=== PATIENT | female | born 1960 | race Caucasian/White ===

== ENCOUNTER 2019-10-27 18:48 | Inpatient (IN) | payer MEDICARE ==
[~2019-10-27] VITALS: Ht 149.9 cm; Wt 93.5 kg
[2019-10-27] MEDS ORDERED: SODIUM CHLORIDE 0.9% 1000ML 1,000 ML IV STA (20:04)
[2019-10-27] MEDS ORDERED: HYDROCODONE/APAP 5MG-325MG TAB PO NR (20:15)
[2019-10-27] MEDS ORDERED: PROMETHAZINE 25MG/ NS 50ML (IV) IV ONE (20:15)
[2019-10-27] MEDS ORDERED: VANCOMYCIN 1GM/NS 250 ML 250 ML IV ONE (20:15)
[2019-10-27] MEDS ORDERED: PIPER-TAZ 3.375 GM 50 ML IV ONE (20:15)
[2019-10-27] MEDS ORDERED: LACTATED RINGER'S 1,000 ML IV SCH (20:29)
[2019-10-27] MEDS ORDERED: ONDANSETRON HCL INJ 2MG/ML 2ML 2 MG/ML VIAL IV NR (20:30)
[2019-10-27] MEDS ORDERED: HYDROCODONE/APAP 7.5MG-325MG 1 EA TAB PO PRN (20:30)
[2019-10-27] MEDS ORDERED: CEFEPIME HCL 2 GM VIAL IV ONE (20:30)
[2019-10-27] MEDS ORDERED: ACETAMINOPHEN 325 MG TAB PO PRN (20:30)
[2019-10-27] MEDS ORDERED: DIPHENHYDRAMINE HCL INJ 50 MG/ML VIAL IV PRN (20:30)
[2019-10-27] MEDS ORDERED: ONDANSETRON HCL INJ 2MG/ML 2ML 2 MG/ML VIAL IV PRN (20:30)
[2019-10-27] MEDS ORDERED: ENALAPRILAT IV INJ 1.25 MG/ML VIAL IV PRN (20:30)
[2019-10-27] MEDS ORDERED: CLONIDINE HCL 0.1 MG TAB PO PRN (20:30)
[2019-10-27] MEDS ORDERED: PROMETHAZINE 25MG/ NS 50ML (IV) IV PRN (20:30)
[2019-10-27] MEDS ORDERED: CEFEPIME 2 GM/NS 0.9% 100 ML 100 ML IV ONE (20:45)
[2019-10-27] MEDS ORDERED: ZOLPIDEM TARTRATE 5 MG TAB PO PRN (21:00)
[2019-10-27 21:26] LABS: BASOPHILS % 0.4 % (0.0-1.0); EOSINOPHILS % 0.1 % (0.0-6.0); HEMATOCRIT 36.1 % (34.2-44.1); HEMOGLOBIN 11.6 g/dL (12.0-16.0); LYMPHOCYTES # (AUTO) 1.7 (1.0-3.2); LYMPHOCYTES % 21.5 % (18.0-39.1); MEAN CORPUSCULAR HEMOGLOBIN 27.5 pg (28-32); MEAN CORPUSCULAR HGB CONC 32.1 g/dL (31-35); MEAN CORPUSCULAR VOLUME 85.5 fL (81-99); MONOCYTES # (AUTO) 0.4 (0.2-0.8); MONOCYTES % 4.4 % (4.4-11.3); NEUTROPHILS # (AUTO) 5.8 (2.1-6.9); NEUTROPHILS % 73.3 % (38.7-80.0); PLATELET COUNT 305 x10e3/uL (140-360); RED BLOOD COUNT 4.22 x10e6/uL (3.6-5.1); RED CELL DISTRIBUTION WIDTH 13.6 % (11.7-14.4)
[2019-10-27 21:35] LABS: BILIRUBIN,URINE 1+ (NEGATIVE); CLARITY,URINE SL CLOUDY (CLEAR); COLOR,URINE YELLOW (YELLOW); KETONES,URINE 2+ (NEGATIVE); LEUKOCYTE ESTERASE ,URINE NEGATIVE (NEGATIVE); NITRITE,URINE NEGATIVE (NEGATIVE); PROTEIN,URINE DIPSTICK TRACE (NEGATIVE); URINE UROBILINOGEN 0.2 mg/dL (0.2 - 1)
[2019-10-27 21:44] LABS: BACTERIA,URINE MODERATE /HPF; EPITHELIAL CELLS,URINE MANY /LPF; RBC,URINE 0-5 /HPF (0-5)
[2019-10-27 21:44] LABS: ALANINE AMINOTRANSFERASE 9 IU/L (0-55); ALBUMIN 3.8 g/dL (3.5-5.0); ALBUMIN/GLOBULIN RATIO 0.8 (0.8-2.0); ALKALINE PHOSPHATASE 106 IU/L (40-150); ANION GAP 16.3 mmol/L (8-16); BLOOD UREA NITROGEN 12 mg/dL (7-26); BUN/CREATININE RATIO 16 (6-25); CARBON DIOXIDE 23 mmol/L (22-29); CHLORIDE 102 mmol/L (98-107); CREATININE, SERUM 0.75 mg/dL (0.57-1.11); EST GLOMERULAR FILTRATION RATE > 60 ML/MIN (60-); GLUCOSE 96 mg/dL (74-118); POTASSIUM 4.3 mmol/L (3.5-5.1); SODIUM 137 mmol/L (136-145)
[2019-10-27 23:40] VITALS: BP 148/77
[2019-10-27 23:45] VITALS: BP 148/77
--- NOTE | 2019-10-27 23:45 | NUR ---
Patient received via stretcher from ER. AAO x 4. Patient had complaints of right leg pain (06/08). Pain medication administered. Respirations even and non-labored. Patient vomited (about 200 cc ) after being transferred to bed. Refused administration of Zofran. Patient made comfortable. HOB elevated. Admission history obtained. Initial physical assessment performed. Right leg scaly, scabby and erythematous. Patient oriented to room, call light and plan of care. Fall precautions implemented. Patient refused bed alarm stating she could walk to the bathroom herself. Patient instructed to call for assistance when needed. Call light within reach.
[2019-10-27] MEDS: MORPHINE SULFATE INJ 4 MG/ML INJ 1ML IV PRN (23:55)
[2019-10-27] MEDS: VANCOMYCIN 1GM/NS 250 ML 250 ML IV SCH (23:59)
[2019-10-28] VITALS (9 sets, daily range): BP systolic 107–148; BP diastolic 58–77
[2019-10-28] MEDS ORDERED: HYDROCODONE/APAP 7.5MG-325MG 1 EA TAB PO PRN (01:15)
[2019-10-28] MEDS ORDERED: phenergan PO (02:24)
[2019-10-28] MEDS ORDERED: ZANAFLEX4 M1 PO (02:24)
[2019-10-28] MEDS ORDERED: MORPHINE SULFAT30 M2 PO (02:24)
[2019-10-28] MEDS: MORPHINE SULFATE INJ 4 MG/ML INJ 1ML IV PRN ×5 (04:26→22:45)
[2019-10-28] MEDS: VANCOMYCIN 1GM/NS 250 ML 250 ML IV SCH ×2 (06:18→18:33)
--- NOTE | 2019-10-28 06:32 | NUR ---
Patient's IV on right arm infiltrated. IVF discontinued. Old IV removed with tip intact. Patient tolerated well.
--- NOTE | 2019-10-28 07:00 | NUR ---
Walking rounds/BSSR conducted.
--- NOTE | 2019-10-28 07:01 | NUR ---
Dr. Reggie Magaña paged to notify him of being the admitting physician for patient instead of Dr. Nikolai Callejas. Awaiting call back.
--- NOTE | 2019-10-28 07:10 | NUR ---
RCD PT AT BED PT IS ALERT AND ORIENTED PT RESTING ON BED SHE C/O PAIN ON RIGHT LOWER LEG 05/08 ,SHE NEEDS PAIN MEDS YOMI IS NO IV ACCESS FOR THE PT PT REQUESTING PICC LINE BED LOW AND LOCKED CALL LIGHT IN REACH
[2019-10-28] MEDS: FAMOTIDINE 20 MG TAB PO SCH ×2 (07:30→17:13)
--- NOTE | 2019-10-28 08:30 | NUR ---
STARTED NEW IV ON THE LEFT HAND WITH 20 AND STARTED THE IV FLUID AND IV ANTIBIOTIC
[2019-10-28] MEDS: ENOXAPARIN SOD INJ 40 MG/0.4 ML SYR SC SCH (09:00)
--- NOTE | 2019-10-28 09:00 | NUR ---
PAIN MEDS MORPHINE 4 MG IV GIVEN SHE SAID SHE NEED TO CHANGE THE PAIN MEDS MORPHINE IN TO DILAUDID ,NOTIFIED DR PEREZ THAT TIME HE HERE TO SEE THE PT HE SAID HE KNOW HER ,HE SAID NOT GOING TO CHANGE MORPHINE ,
--- NOTE | 2019-10-28 09:15 | NUR ---
PT REQUESTED TO INCREASE THE DOSE OF MORPHINE NOTIFIED DR PEREZ HE SAID IF INCREASING THE MORPHINE HER RESPIRATION WILL STOP,EXPLAINED TO THE PATIENT SHE IS NOT HAPPY ABOUT IT
--- NOTE | 2019-10-28 09:17 | NUR ---
[facility] Antonia states patient has this company for her [employer]. Provided Antonia with dx and admit date
--- NOTE | 2019-10-28 12:20 | NUR ---
CARE TRANSFERRED TO [facility]
--- NOTE | 2019-10-28 13:24 | NUR ---
WOUND CARE CONSULT FOR 59 YO FEMALE HX OF RIGHT LOWER LEG CELLULITIS MARY LOU 20 ON CONSERVATIVE PUP STATUS AND INTERVENTIONS ON VISCO MATTRESS LABS : WBC- 7.87, HGB- 11.6, GLUCOSE -96 SKIN ASSESSMENT COMPLETE PATIENT PRESENTS WITH RIGHT LOWER LEG DERMATITIS RAISED AND SCALY COVERED 90% BROWN THIN DRY SCABBED AREA MEASURES 30CM X27CM EXTENDS FROM DORSAL PORTION TO POSTERIOR PORTION RIGHT LOWER LEG PATIENT COMPLAINS OF ITCHY PAINFUL STINGING RECOMMENDATIONS : NURSING TO CONTINUE TO MAINTAIN CONSERVATIVE PUP STATUS AND INTERVENTIONS ON VISCO MATTRESS NURSING TO CONTINUE TO ASSIST PATIENT OUT OF BED FOR MEALS AND MUCH TOLERATED NURSING TO CLEAN RIGHT LOWER LEG PARTIAL THICKNESS DERMATITIS AREA DAILY WITH NORMAL SALINE AND COVER WITH XEROFORM GAUZE 4X4'S AND WRAP WITH KERLIX Addendum: 10/28/19 at 1338 by Kevin Rao RN Amended: Links added.
--- NOTE | 2019-10-28 16:14 | History and Physical ---
HISTORY OF PRESENT ILLNESS: The patient is a 59-year-old female with past medical history positive for chronic pain syndrome, obesity, gastroesophageal reflux disease, came here because she failed outpatient treatment for cellulitis on the right leg. REVIEW OF SYSTEMS: CARDIOVASCULAR: No chest pain or palpitation. RESPIRATORY: No shortness of breath. No cough. GASTROINTESTINAL: No nausea, vomiting, or diarrhea. GENITOURINARY: No frequency. No dysuria. ALLERGIES: SHE IS ALLERGIC TO PENICILLIN AND CODEINE. SOCIAL HISTORY: She smokes. She does not drink. PAST MEDICAL HISTORY: Gastroesophageal reflux disease, chronic pain syndrome, obesity. PHYSICAL EXAMINATION: VITAL SIGNS: Blood pressure 120/58, temperature 97.4, heart rate 63 per minute, respiratory rate is 20 per minute, oxygen saturation 96%. HEART: Showed regular rhythm. Normal S1 and S2 sound. LUNGS: Clear bilaterally. ABDOMEN: Soft. EXTREMITIES: Shows a scaly rash with tenderness on the right leg. LABORATORY DATA: On the BMP; sodium 137, potassium 4.3, chloride 102 CO2 23, BUN 12, creatinine 0.76, glucose 96. On the CBC, white blood count 7.87, hemoglobin 11.6, hematocrit 36.1, and platelet count 305,000. AST 13, ALT 9, total bilirubin 0.5, alkaline phosphatase 106. FINAL IMPRESSION: 1. Cellulitis of the right leg. 2. Gastroesophageal reflux disease. 3. Chronic pain syndrome. 4. Obesity. 5. Anemia of chronic disease. PLAN OF TREATMENT: Continue vancomycin 1 g IV twice a day. Continue IV fluids. Continue Tylenol 650 mg q.6 hours as needed for pain or fever, clonidine 0.1 mg three times a day, Zofran 4 mg IV q.4 hours as needed for vomiting, morphine 4 mg IV q.4 hours as needed, Benadryl 25 mg q.6 hours as needed, enalaprilat 0.625 mg IV q.6 hours as needed for hypertension, [place] 1 tablet q.4 hours as needed, Lovenox 40 mg subcutaneous daily, Ambien 10 mg at night p.r.n. for sleep, Pepcid 20 mg twice a day, promethazine 25 mg q.4 hours as needed for severe pain. We are going to get an Infectious Disease consult with Dr. Auguste and Wound Care consult with Dr. Hutchison due to the scaly lesions on the right leg. MD ARON Bueno/CHINYERE /[id number]
--- NOTE | 2019-10-28 19:20 | NUR ---
Patient received sitting up in bed. AAO x 4. Patient complained about right leg pain (05/08). Will administer medication per eMAR. No signs of respiratory distress. Call light within reach.
--- NOTE | 2019-10-28 22:11 | Consultation ---
DATE OF CONSULTATION: 10/28/2019 REASON FOR CONSULTATION: Cellulitis of the right leg. HISTORY OF PRESENT ILLNESS: This is a patient who is a very pleasant 59-year-old white female, who has been having problem with the right leg for some time. She was sent to hospital for a few days for infection. She was discharged home with oral antibiotic, but she is coming back with worsening redness and swelling of the leg. The patient is being admitted. I am asked to see her. The patient denies any history of trauma, but she does have history of obesity. The patient has been having the problem with her leg for 1 to 3 weeks. She had chronic infection for 4 months. She was taking antibiotics for a few weeks without any improvement, getting progressively worse, so she came here. PAST MEDICAL HISTORY: Significant for obesity. PAST SURGICAL HISTORY: Denies. ALLERGIES: NKA. SOCIAL HISTORY: There is no smoking, drug abuse, or alcohol abuse. FAMILY HISTORY: Otherwise noncontributory. REVIEW OF SYSTEMS: At the present time, HEENT: There is no headache, visual changes, or hearing changes. GI: There is no nausea, no vomiting, no diarrhea. CARDIAC: There is no arrhythmia. NEURO: There is no seizure activity. SKIN: There is no rash. Review of systems otherwise HEENT negative, Pulmonary negative, Cardiac negative. All symptoms within normal limits. LABORATORY DATA: Reviewed. MEDICATION LIST: Reviewed. She is currently on: 1. Morphine. 2. Zofran. 3. Vancomycin. 4. Catapres. LABORATORY DATA: White count 7.7, hemoglobin 11.6. Sodium 137, potassium 4.3, creatinine 0.75, and protein of 8.4. PHYSICAL EXAMINATION: GENERAL: She is currently alert, oriented, does not seem to be in acute distress. VITAL SIGNS: Temperature 96.5, heart rate of 60, respirations 20, and blood pressure 129/63. HEENT: Normocephalic, not icteric. NECK: Supple. CHEST: Clear bilateral. HEART: S1, S2. No S3, S4, or murmur. ABDOMEN: Soft. Bowel sounds present. EXTREMITIES: Right leg, there is erythema, there is edema. IMPRESSION: Cellulitis of the right leg. We will like to get the records from previous as she did not let me examine the leg now. We just wrapped. We will see it again with the Wound Care. Continue with current choice of antibiotic for now. We will revisit again later today. Discussed with the patient. We will follow with you. MD FAVIOLA Mcfarlane/CHINYERE /[id number]
[2019-10-29] VITALS (8 sets, daily range): BP systolic 115–156; BP diastolic 60–68
[2019-10-29] MEDS: MORPHINE SULFATE INJ 4 MG/ML INJ 1ML IV PRN ×5 (02:47→19:56)
--- NOTE | 2019-10-29 07:00 | NUR ---
Patient resting comfortably. Walking rounds done. Bed-side report given to oncoming nurse regarding patient's status.
--- NOTE | 2019-10-29 07:40 | NUR ---
spoke with CHERELLE Og for Dr. Auguste regarding Vancomycin trough; he states go ahead and give next dose.
[2019-10-29] MEDS: VANCOMYCIN 1GM/NS 250 ML 250 ML IV SCH ×2 (10:14→18:16)
[2019-10-29] MEDS: FAMOTIDINE 20 MG TAB PO SCH ×2 (10:15→18:16)
[2019-10-29] MEDS: ENOXAPARIN SOD INJ 40 MG/0.4 ML SYR SC SCH (10:15)
[2019-10-29] MEDS: ONDANSETRON HCL 4 MG ORAL DISINTEGRATING TAB PO PRN ×2 (10:20→19:56)
[2019-10-29] MEDS ORDERED: FENTANYL 25 MCG/HR PATCH TOP SCH (15:00)
--- NOTE | 2019-10-29 17:45 | Consultation ---
DATE OF CONSULTATION: 10/29/2019 Wound Consultation Thank you, Dr. Magaña, for asking me to see this patient. HISTORY OF PRESENT ILLNESS: A 59-year-old female patient, history of chronic lower extremity itching, admitted 3 times with cellulitis of the legs. She is getting home health, wound care and getting Xeroform applied to the both legs with a Kerlix. The patient keeps scratching. On examination, she has bilateral chronic and acute eczema, most likely from bismuth in the Xeroform causing contact dermatitis followed by scratching leading to cellulitis. I removed all the adherent plaques of hyperkeratotic skin and applied triamcinolone cream for eczema. PAST MEDICAL HISTORY: Obesity, recurrent cellulitis lower extremity, possible venous insufficiency, anemia, and GERD. ALLERGIES: TO PENICILLIN AND CODEINE. PERSONAL HISTORY: Smokes. No history of drinking. PHYSICAL EXAMINATION: VITAL SIGNS: Blood pressure 120/58, pulse of 63, and temperature 97.4. HEENT: Normal. NECK: No JVD. LUNGS: Clear. ABDOMEN: Soft, protuberant, and obese. EXTREMITIES: Lower extremities; bilateral lower extremities scaly and hyperkeratotic skin with redness involving both legs, more on the right leg consistent with eczema. ASSESSMENT: Znxhe-[id number]-[id number] eczema both lower extremities with scratching and cellulitis. PLAN: Apply triamcinolone acetonide 0.1% cream to both legs, live it to air. Thank you for consultation. We will follow up. MD NATHANIEL Clement/CHINYERE /[id number]
[2019-10-29] MEDS: TRIAMCINOLONE ACET 0.1% CREAM 15 GM TUBE TOP SCH (18:23)
--- NOTE | 2019-10-29 18:40 | Progress Note ---
DATE: 10/29/2019 Internal Medicine Progress Note SUBJECTIVE: The patient is complaining of pain in the right leg. She is actually getting morphine every 4 hours. She is also taking Bonham every 4 hours. The pain is out of proportion to the medical condition that she has. She also has chronic back pain from the past. We are going to get a Pain Management consult due to the pain that she is having, which is completely out of proportion to the pain that she should have from cellulitis on the legs. OBJECTIVE: VITAL SIGNS: Blood pressure 156/68, temperature 97 degrees, heart rate 70 per minute, respiratory rate 18 per minute, oxygen saturation 96%. HEART: Showed regular rhythm. Normal S1, S2 sound. LUNGS: Clear bilaterally. ABDOMEN: Nondistended. EXTREMITIES: Show redness on the lateral aspect of the right leg. LABORATORY DATA: On the BMP, sodium 137, potassium 4.3, chloride 102, CO2 of 23. BUN 12, creatinine 0.75, glucose 96. On CBC, white blood count 7.87, hemoglobin 11.6, hematocrit 36.1, and platelet count 305,000. AST 13, ALT 9, total bilirubin 0.5, alkaline phosphatase 106. IMPRESSION: 1. Cellulitis on the right leg. 2. Chronic pain syndrome. 3. Obesity. 4. Hypertension. PLAN OF TREATMENT: We are going to continue: 1. Vancomycin 1 g IV twice a day. 2. Tylenol 650 mg q.6 hours as needed. 3. Clonidine 0.1 mg 3 times a day. 4. Lovenox 40 mg subcutaneous daily. 5. Promethazine 25 mg IV q.4 hours as needed for nausea and vomiting. 6. Triamcinolone cream twice a day. 7. Pepcid 20 mg twice a day. 8. Morphine. She is taking 4 mg IV q.4 hours as needed. 9. She is taking enalaprilat 0.625 mg IV q.6 hours as needed for hypertension. 10. Bonham 1 tablet q.4 hours as needed for [id number] pain. 11. Ambien 10 mg at night p.r.n. for sleep. 12. Zofran 4 mg q.4 hours as needed for nausea and vomiting. We are going to also get case mgr's further evaluation for a possible transfer to post acute medical rehab on Friday. MD ARON Buneo/CHINYERE /[id number]
[2019-10-29] MEDS ORDERED: HYDROCODONE/APAP 10MG-325MG TAB PO PRN (18:45)
[2019-10-30] VITALS (8 sets, daily range): BP systolic 116–134; BP diastolic 60–75
[2019-10-30] MEDS: MORPHINE SULFATE INJ 4 MG/ML INJ 1ML IV PRN ×6 (04:07→21:10)
--- NOTE | 2019-10-30 06:42 | NUR ---
Received [facility] trough level of 17.9. paged. Awaiting call back from .
--- NOTE | 2019-10-30 07:19 | NUR ---
report given to day nurse. patient is resting comfortably in bed. bed is in lowest position and call bucio is within reach.
[2019-10-30] MEDS: FAMOTIDINE 20 MG TAB PO SCH ×2 (08:26→17:01)
[2019-10-30] MEDS: ENOXAPARIN SOD INJ 40 MG/0.4 ML SYR SC SCH (08:32)
[2019-10-30] MEDS: ONDANSETRON HCL 4 MG ORAL DISINTEGRATING TAB PO PRN ×4 (08:36→21:10)
[2019-10-30] MEDS: VANCOMYCIN 1GM/NS 250 ML 250 ML IV SCH ×2 (08:36→17:01)
[2019-10-30] MEDS: TRIAMCINOLONE ACET 0.1% CREAM 15 GM TUBE TOP SCH ×2 (08:43→16:58)
--- NOTE | 2019-10-30 15:08 | NUR ---
CM called pt's daughter Анна Gamboa and obtained home health information. [facility] Office phone [phone] Nurse that comes to see pt is Frida [phone]. Home health resumption order and clinicals faxed. Confirmation received. CM called office phone to notify of clinicals and possible dc. Phone went to [facility] and voicemail box is full, CM unable to leave message. CM also placed call to Frida, which also went to [facility]. Left message for callback.
--- NOTE | 2019-10-30 15:30 | NUR ---
Received callback from Frida. She stated that the office is closed on the weekends. CM informed her that resumption order and clinicals were faxed today. Possible DC tomorrow. She states she has been talking to pt daily.
--- NOTE | 2019-10-30 15:34 | Progress Note ---
DATE: 10/30/2019 Internal Medicine Progress Note. ADDENDUM: The patient is refusing to go to an inpatient rehab facility, so most likely going to her home on Friday or tomorrow with home health. MD ARON Bueno/CHINYERE /[id number]
--- NOTE | 2019-10-30 16:49 | Progress Note ---
DATE: 10/30/2019 Internal Medicine Progress Note SUBJECTIVE: The patient is with less pain today. PHYSICAL EXAMINATION: VITAL SIGNS: Blood pressure 134/75, temperature 96.3, heart rate 52 per minute, respiratory rate 17 per minute, and O2 saturation 96%. HEART: Showed regular rhythm. Normal S1, S2 sound. LUNGS: Clear bilaterally. ABDOMEN: Nondistended. EXTREMITIES: Show significant decrease in the redness and scaly lesions. LABORATORY DATA: On the BMP; sodium 137, potassium 4.3, chloride 102, CO2 of 23, BUN 12, creatinine 0.75, glucose 96. CBC; white blood count 7.8, hemoglobin 8.6, hematocrit 36.1, and platelet count 305,000. AST 13, ALT 9, total bilirubin 0.5, alkaline phosphatase 106. IMPRESSION: 1. Cellulitis on right leg. 2. Gastroesophageal reflux disease. 3. Chronic pain syndrome. 4. Obesity. PLAN OF TREATMENT: Continue vancomycin q.12 hours. Continue Tylenol 650 mg q.6 hours. Continue clonidine 0.1 mg three times a day, Lovenox 40 mg subcu daily for DVT prophylaxis, promethazine 25 mg IV q.6 hours as needed for vomiting, fentanyl patch 25 mcg q.72 hours, Pepcid 20 mg twice a day, morphine 4 mg IV q.4 hours as needed, [place] one tablet q.4 hours as needed for severe pain, enalaprilat 0.625 mg IV q.6 hours as needed for hypertension, Zofran 4 mg IV q.4 hours as needed, Ambien 10 mg at bedtime as needed for insomnia, and triamcinolone cream twice a day. Tentative discharge tomorrow with home health for PT/OT. MD ARON Bueno/LAMINEL /[id number]
--- NOTE | 2019-10-30 18:50 | Progress Note ---
DATE: 10/30/2019 SUBJECTIVE: Ms. Gamboa is lying in bed comfortably. There are no new complaints. She still has some nausea. REVIEW OF SYSTEMS: HEENT: Negative. PULMONARY: Negative. CARDIAC: Negative. Otherwise unremarkable. LABORATORY DATA: Her blood cultures are negative. Her white count is 7.8, hemoglobin of 11. Sodium 137, potassium 4.3. PHYSICAL EXAMINATION: GENERAL: She is currently alert, oriented, does not seem to be in acute distress. VITAL SIGNS: Stable. Currently afebrile. HEENT: Normocephalic, not icteric. NECK: Supple. CHEST: Clear. HEART: S1, S2. No S3, S4, or murmur. ABDOMEN: Soft. Bowel sounds present. No tenderness. EXTREMITIES: Edema in the leg seems to be much better. IMPRESSION: 1. Cellulitis of the leg, improving. 2. Obesity. 3. Chronic pain syndrome. 4. Hypertension. Continue with vancomycin. Continue with local care. Discussed with Internal Medicine. Discussed with medical team. We will follow. MD FAVIOLA Mcfarlane/CHINYERE /[id number]
[2019-10-31] VITALS (8 sets, daily range): BP systolic 128–145; BP diastolic 59–81
[2019-10-31] MEDS: ONDANSETRON HCL 4 MG ORAL DISINTEGRATING TAB PO PRN ×5 (01:12→18:07)
[2019-10-31] MEDS: MORPHINE SULFATE INJ 4 MG/ML INJ 1ML IV PRN ×5 (01:12→18:07)
--- NOTE | 2019-10-31 06:35 | NUR ---
patient is resting comfortably in bed, bed is in lowest position and call bucio is within reach.
[2019-10-31] MEDS: FAMOTIDINE 20 MG TAB PO SCH ×2 (08:24→16:19)
[2019-10-31] MEDS: ENOXAPARIN SOD INJ 40 MG/0.4 ML SYR SC SCH (08:24)
[2019-10-31] MEDS: TRIAMCINOLONE ACET 0.1% CREAM 15 GM TUBE TOP SCH ×2 (08:25→16:19)
--- NOTE | 2019-10-31 14:02 | Progress Note ---
DATE: 10/31/2019 Internal Medicine Progress Note. The patient is doing well. She wants to go home tomorrow. She preferred to have home health rather she going to an inpatient rehab. PHYSICAL EXAMINATION: VITAL SIGNS: Blood pressure 134/67, temperature 97.2, heart rate 58 per minute, respiratory rate is 20 per minute, and oxygen saturation 98%. HEART: Regular rhythm. Normal S1, S2 sound. LUNGS: Clear bilaterally. ABDOMEN: Soft. EXTREMITIES: Showed decreased redness on the right leg. LABORATORY DATA: BMP; sodium 137, potassium 4.3, chloride 102, CO2 of 23, BUN 12, creatinine 0.75, glucose 96. On the CBC, white count 7.87, hemoglobin 9.6, hematocrit 36.1, and platelet count 205,000. AST 13, ALT 9, total bilirubin 0.5, alkaline phosphatase 106. IMPRESSION: 1. Cellulitis of the right leg. 2. Gastroesophageal reflux disease. 3. Chronic pain syndrome. 4. Obesity. PLAN OF TREATMENT: Continue vancomycin 1000 mg IV once a day, Tylenol 650 mg q.6 hours as needed for pain or fever, clonidine 0.1 mg three times a day, Lovenox 40 mg subcutaneous daily for DVT prophylaxis, promethazine 25 mg IV q.4 hours as needed for nausea and vomiting, fentanyl patch 25 mcg q.72 hours, Pepcid 20 mg twice a day, morphine 4 mg IV q.4 hours as needed, [place] 1 tablet q.4 hours as needed for severe pain, enalaprilat 0.625 mg IV q.6 hours, Zofran 4 mg IV q.4 hours as needed for nausea and vomiting. She is taking methylprednisolone which we are going to discontinue and put her on oral prednisone. Continue Ambien 10 mg at bedtime and triamcinolone cream twice a day. MD ARON Bueno/CHINYERE /[id number]
--- NOTE | 2019-10-31 14:13 | NUR ---
went ahead and faxed order and facesheet to [facility].
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
--- NOTE | 2019-10-31 17:37 | NUR ---
Dr. Auguste notified of Vancomycin level 21.1. Orders received.
--- NOTE | 2019-10-31 19:05 | NUR ---
bedside rounding complete, report given to oncoming nurse. pt stable condition.
--- NOTE | 2019-10-31 20:17 | NUR ---
received report from day nurse. bedside rounding complete. patient is resting in bed. bed is in lowest position and call bucio is within reach. will continue to monitor patient.
[2019-10-31] MEDS ORDERED: METHYLPREDNISOLONE SOD SUCC 40 MG/ML VIAL 1ML IV SCH (21:00)
[2019-11-01] VITALS: BP 160/72
[2019-11-01] MEDS: MORPHINE SULFATE INJ 4 MG/ML INJ 1ML IV PRN ×3 (00:06→08:16)
[2019-11-01 04:00] VITALS: BP 142/84
[2019-11-01] MEDS ORDERED: VANCOMYCIN 500MG/NS 0.9% 100ML 100 ML IV SCH (06:30)
--- NOTE | 2019-11-01 07:00 | NUR ---
BEDSIDE SHIFT REPORT RECEIVED FROM THE LOCATOR RN. EDUCATED PT ABOUT FALL PRECAUTIONS. CALL LIGHT WITH IN EASY REACH. INSTRUCTED PT TO USE CALL LIGHT FOR ALL THE NEEDS. PT VERBALIZED UNDERSTANDING. BED IS LOW AND LOCKED. SIDE RAILS X2. PT DENIES NEEDS AT THIS TIME.
--- NOTE | 2019-11-01 07:10 | NUR ---
report given to day nurse. patient is resting comfortably in bed. bed is in lowest position and call bucio is within reach.
--- NOTE | 2019-11-01 07:55 | NUR ---
PAGED DR. PEREZ TO CONFIRM THE DOSE OF PREDNISONE. WAITING FOR THE CALL BACK.
[2019-11-01 07:59] VITALS: BP 149/82
[2019-11-01 08:03] VITALS: BP 149/82
--- NOTE | 2019-11-01 08:15 | NUR ---
STEPHANIE VILLARREAL AT BEDSIDE. INFORMED PT VANC TROUGH LEVEL.
[2019-11-01] MEDS: ENOXAPARIN SOD INJ 40 MG/0.4 ML SYR SC SCH (08:19)
[2019-11-01] MEDS: FAMOTIDINE 20 MG TAB PO SCH (08:19)
[2019-11-01] MEDS: TRIAMCINOLONE ACET 0.1% CREAM 15 GM TUBE TOP SCH (08:21)
[2019-11-01] MEDS ORDERED: PREDNISONE 10 MG TAB PO SCH (09:00)
[2019-11-01] MEDS ORDERED: PREDNISONE 20 MG TAB PO SCH (09:00)
--- NOTE | 2019-11-01 09:00 | NUR ---
DR. PEREZ AT BEDSIDE. PREDNISONE 10 G PER THE ARRANGE TRANSFORATION AT DISCHARGE TO HOME BY CASE MANAGEMENT PER THE
--- NOTE | 2019-11-01 11:00 | NUR ---
HH ARRANGED AND OKAY TO D/C PT PER CASE MANAGEMENT.
--- NOTE | 2019-11-01 11:01 | NUR ---
HOME HEALTH DISCHARGE NOTE PATIENT ADDRESS WHERE SERVICE WILL BE RECEIVED: [address] [place] [id number] PATIENT CONTACT NUMBER: [phone] NAME OF [employer] [employer]: [employer] TELEPHONE/FAX NUMBER OF [employer]: [phone] / F [phone] ADDRESS OF [employer]: [address] [place] [address] [place] [address] SERVICES TO RECEIVE: Resume services - SN, PT, OT ANTICIPATED DATE SERVICES WILL BEGIN: November 02, 2019 Please call the company above if you have not received a call to schedule a home visit within 24 hours of discharge. HERMINIO called and spoke to Lovely at [employer]. Informed her that pt is dc today. She states they received clinicals from the weekend and will be able to see pt tomorrow. IMM letter delivered and explained to pt. She verbalized understanding. Signed copy placed in chart. Copy to pt.
--- NOTE | 2019-11-01 11:15 | NUR ---
MARCO A TO D/C PT PER DR. PEREZ.
[2019-11-01] MEDS ORDERED: LISINOPRIL10 MG PO (11:23)
[2019-11-01] MEDS ORDERED: DOXYCYCLINE HY100 MG PO (11:23)
[2019-11-01] MEDS ORDERED: PREDNISONE10 MG PO (11:24)
[2019-11-01] MEDS ORDERED: TRIAMCINOLONE A15 G1 (11:25)
--- NOTE | 2019-11-01 11:50 | NUR ---
PT DISCHARGED HOME SAFELY. CAB SERVICE ARRANGED FOR THE PT TO GO HOME BY [facility]. IV REMOVED, TIP INTACT. DRESSING APPLIED. RX GIVEN. DISCHARGE INSTRUCTIONS GIVEN AND PATIENT VERBALIZED UNDERSTANDING. PT ESCORTED VIA WHEEL CHAIR TO THE CAB AT THE FRONT ENTRANCE BY THE [facility]. PT DENIED FURTHER NEEDS.
--- NOTE | 2019-11-02 04:31 | Discharge Summary ---
HISTORY: The patient is 59-year-old female past medical history positive for chronic pain syndrome, hypertension, came here with redness and scaly rash in the right leg. She was diagnosed with cellulitis and eczema. She was started on the corticosteroids topically and p.o. and IV antibiotics. The patient is refusing to go to an inpatient rehab she wants to go home and we are going to switch antibiotics to p.o. and she is going to take oral prednisone and also triamcinolone cream. PHYSICAL EXAMINATION: HEART: Showed regular rhythm. Normal S1, S2 sound. LUNGS: Clear bilaterally. EXTREMITIES: Showed redness and scaly lesions on the right leg. VITAL SIGNS: Blood pressure 149/82, temperature 97.5, heart rate 68 per minute, respiratory rate 20 per minute, oxygen saturation 96%. IMPRESSION: 1. Cellulitis on the right leg. 2. Eczema on the right leg. 3. Chronic pain syndrome. 4. Hypertension. 5. Obesity. PLAN OF TREATMENT: She will continue pain management. As an outpatient she got a pain pump. Continue prednisone 10 mg daily for 10 days, continue triamcinolone cream 0.1% twice a day for 10 days. Follow up with her primary care physician in a week. The patient declined to go to an inpatient rehab. MD ARON Bueno/CHINYERE /[id number]
== END 2019-11-01 11:49 | disposition home health service (06) | DRG 603 ==
LOC: ER 18:48 → ERHOLD 20:34 → MED/SURG2 23:29
PROVIDERS: ADMIT Internal Medicine; ATTEND Internal Medicine
DX: L03.115 Cellulitis of right lower limb (principal); Z68.41 Body mass index [BMI] 40.0-44.9, adult; K21.9 Gastro-esophageal reflux disease without esophagitis; D50.0 Iron deficiency anemia secondary to blood loss (chronic); L30.9 Dermatitis, unspecified; G89.4 Chronic pain syndrome; D63.8 Anemia in other chronic diseases classified elsewhere; G47.00 Insomnia, unspecified; E66.9 Obesity, unspecified; I10 Essential (primary) hypertension; R53.81 Other malaise
CPT/HCPCS: 36415; 80053; 80202; 81001; 85025; 87040; 97139; 99284; J1650; J2270; J2405; J3370; J7121; J7512; Q0162